=== PATIENT | female | born 1990 | race African-American/Black ===

== ENCOUNTER 2018-11-26 12:49 | Emergency (ER) | payer OTHER ==
[~2018-11-26] VITALS: Ht 180.3 cm; Wt 65.9 kg
[2018-11-26] MEDS ORDERED: MethylPREDNISolone SOD SUCC 125 MG/2 ML VIAL IVP ONE (13:00)
[2018-11-26] MEDS ORDERED: DiphenhydrAMINE HCL 50 MG/ML VIAL IVP ONE (13:00)
[2018-11-26] MEDS ORDERED: SODIUM CHLORIDE 0.9% 1,000 ML IV ONE (13:00)
[2018-11-26] MEDS ORDERED: LORATADINE 10 MG TABLET PO ONE (14:00)
[2018-11-26 14:39] VITALS: BP 126/81
== END 2018-11-26 14:42 | disposition home or self-care (01) ==
LOC: EMS 12:50
DX: T78.3XXA Angioneurotic edema, initial encounter (principal); F17.210 Nicotine dependence, cigarettes, uncomplicated; Z88.5 Allergy status to narcotic agent
CPT/HCPCS: 96374; 96375; 99291; J1200; J2930; J7030